=== PATIENT | male | born 1975 | race Two or more races ===

== ENCOUNTER 2018-09-21 02:38 | Inpatient (IN) | payer SELFPAY ==
[~2018-09-21] VITALS: Ht 172.7 cm; Wt 104.9 kg
[2018-09-21] MEDS ORDERED: methylPREDNISolone SOD SUCC 125 MG/2 ML VL IV ONE (03:30)
[2018-09-21] MEDS ORDERED: diphenhdrAMINE HCL 50 MG/1 ML VL IV ONE (03:30)
[2018-09-21] MEDS ORDERED: IPRATROPIUM BROM 0.5 MG/2.5ML INH SOL NEB ONE (04:45)
[2018-09-21] MEDS ORDERED: ALBUTEROL SULF 2.5 MG/0.5ML(0.5%) NEB SOLN NEB ONE (04:45)
[2018-09-21 08:01] LABS: Urine Bacteria NONE SEEN /hpf (None Seen); Urine Blood Negative /uL (Negative); Urine Specific Gravity 1.009 (1.001-1.035); Urine WBC 1 /hpf (0 - 3)
[2018-09-21 09:02] LABS: Basophils % (auto) 0.6 % (0.0-2.0); Eosinophils # (auto) 0.2 uL; Nucleated Red Blood Cells % 0.1 %; Red Blood Cells 4.73 10^6/uL (4.5-5.90)
[2018-09-21 09:04] LABS: Basophils # (auto) 0.1 uL; Eosinophils % (auto) 2.1 % (0.0-7.0); Hematocrit 47.1 % (41.0-53.0); Hemoglobin 16.1 g/dL (13.5-17.5); Lymphocytes # (auto) 3.5 uL; Lymphocytes % (auto) 42.1 % (10.0-50.0); Mean Corpuscular Hgb Conc. 34.1 g/dL (32.0-36.0); Mean Corpuscular Volume 99.6 fL (80.0-100.0); Monocytes # (auto) 0.6 uL; Monocytes % (auto) 7.2 % (0.0-12.0); Platelet Count (auto) 104 10^3/uL (140-450); Red Cell Distribution Width 13.7 % (11.8-14.3); White Blood Cell 8.3 10^3/uL (4.4-10.8)
[2018-09-21 09:12] LABS: Albumin 3.4 g/dL (3.4-5.0); BUN/Creatinine Ratio 17.9; Calcium 8.9 mg/dL (8.5-10.1); Potassium 3.4 mmol/L (3.5-5.1)
[2018-09-21 09:15] LABS: Bilirubin, Total 0.9 mg/dL (0.2-1.0); Total Protein 7.6 g/dL (6.4-8.2)
[2018-09-21] MEDS ORDERED: ACETAMINOPHEN 500 MG TAB PO PRN (10:00)
[2018-09-21] MEDS ORDERED: PROMETHAZINE HCL 25 MG/ML 1ML IV PRN (10:00)
[2018-09-21] MEDS ORDERED: ALBUTEROL SULF 2.5 MG/0.5ML(0.5%) NEB SOLN NEB PRN (10:00)
[2018-09-21] MEDS ORDERED: LACTULOSE 20Gm/30ML SOLN PO PRN (10:00)
[2018-09-21] MEDS ORDERED: NITROGLYCERIN 0.4 MG SL TAB SL PRN (10:00)
[2018-09-21] MEDS: FAMOTIDINE 20 MG TAB PO SCH ×2 (10:20→21:02)
[2018-09-21] MEDS: SODIUM CHLORIDE 0.9% 1,000 ML IV SCH ×2 (10:22→22:29)
[2018-09-21 10:55] LABS: INR 1.1 (0.9-1.15); Partial Thromboplastin Time 29.3 sec (23.78-33.04); Prothrombin Time 11.7 sec (9.27-12.13)
[2018-09-21] MEDS: ALBUTEROL SULF 2.5 MG/0.5ML(0.5%) NEB SOLN NEB SCH ×3 (11:14→23:14)
[2018-09-21 11:35] VITALS: BP 143/83
[2018-09-21] MEDS: methylPREDNISolone SOD SUCC 40 MG/ML VL IV SCH ×2 (12:13→18:26)
--- NOTE | 2018-09-21 15:35 | NUR ---
Telemetry admit from ER TUNG JENSEN admitted to Telemetry unit no SBAR received. Patient oriented to MARLY yoon RN, unit, room, bed, and unit policies regarding patient care and visiting hours. Patient now on continuous telemetry monitoring, tele box #[id number] and telemetry reading on arrival to unit is tachycardia, heart rate 107. Patient encouraged to call if they need something. All questions and concerns addressed, patient verbalized understanding.
[2018-09-21 16:30] VITALS: BP 134/70
[2018-09-21] MEDS ORDERED: LISI-646 PO (18:35)
--- NOTE | 2018-09-21 20:04 | NUR ---
PT STATES HE CANNOT SLEEP W/O A C-PAP;PAGE PLACED TO HOSPITALIST;AWAITING CALL BACK.
[2018-09-21 21:45] VITALS: BP 131/76
[2018-09-22] MEDS: methylPREDNISolone SOD SUCC 40 MG/ML VL IV SCH ×3 (00:22→12:00)
[2018-09-22 04:50] VITALS: BP 109/65
[2018-09-22] MEDS: ALBUTEROL SULF 2.5 MG/0.5ML(0.5%) NEB SOLN NEB SCH ×2 (05:46→11:47)
--- NOTE | 2018-09-22 07:30 | NUR ---
OPENING SHIFT PATIENT RESTING IN BED. NO S/S OF DISTRESS, SOB, OR PAIN. RESPIRATIONS EVEN AND UNLABORED. DISCUSSED POC WITH PATIENT. PATIENT VERBALIZED UNDERSTANDING. BED IS IN LOWEST POSITION, SIDE RAILS UP X2, AND CALL LIGHT WITHIN REACH. WILL CONTINUE TO MONITOR Q1 HOUR AND PRN.
[2018-09-22 08:29] VITALS: BP 112/68
[2018-09-22] MEDS: FAMOTIDINE 20 MG TAB PO SCH (09:10)
--- NOTE | 2018-09-22 10:42 | NUR ---
DR CACHORRO Armas AT BEDSIDE. DISCUSSED POC WITH PATIENT. PATIENT VERBALIZED UNDERSTANDING. PATIENT IS BEING DISCHARGED
[2018-09-22] MEDS: SODIUM CHLORIDE 0.9% 1,000 ML IV SCH (11:50)
--- NOTE | 2018-09-22 11:50 | NUR ---
DISCHARGE Discharge instructions given as ordered. Encourage to follow up with [facility] urgent care as instructed. All questions and concerns addressed. Patient verbalized understanding. IV removed with catheter intact, pressure dressing applied. Telemetry unit returned to [facility]. Patient awaiting transportation. NO s/s of distress, sob, or pain.
[2018-09-22 11:59] VITALS: BP 126/71
--- NOTE | 2018-09-22 12:20 | NUR ---
AWAITING TRANSPORTATION CONTACTED AND IS COMING TO CUSTOMER ASSISTANCE ASSOCIATE PATIENT
--- NOTE | 2018-09-22 12:34 | NUR ---
DISCHARGE, PATIENT LEFT Transportation arrived. Patient taken to vehicle via wheelchair with all personal belongings, accompanied by staff and family member. No distress noted at time of departure.
== END 2018-09-22 12:34 | disposition home or self-care (01) | DRG 916 ==
LOC: ER 02:42 → TELE 10:04 → TELE-WESTW 15:39
PROVIDERS: ADMIT Internal Medicine; ATTEND Internal Medicine
PROC: 5A09357 Assistance with Respiratory Ventilation, Less than 24 Consecutive Hours, Continuous Positive Airway Pressure (ICD-10-PCS; principal; 2018-09-21)
PROC: 5A09357 Assistance with Respiratory Ventilation, Less than 24 Consecutive Hours, Continuous Positive Airway Pressure (ICD-10-PCS; 2018-09-22)
DX: T78.3XXA Angioneurotic edema, initial encounter (principal); E87.6 Hypokalemia; E66.9 Obesity, unspecified; F17.210 Nicotine dependence, cigarettes, uncomplicated; I10 Essential (primary) hypertension; J39.2 Other diseases of pharynx; K76.0 Fatty (change of) liver, not elsewhere classified; Z88.5 Allergy status to narcotic agent; T78.49XA Other allergy, initial encounter; X58.XXXA Exposure to other specified factors, initial encounter; Z68.35 Body mass index [BMI] 35.0-35.9, adult; G47.30 Sleep apnea, unspecified
CPT/HCPCS: 36415; 70360; 71045; 72125; 80053; 81001; 85025; 85610; 85730; 94640; 94660; 94762; G0378